=== PATIENT | female | born 1930 | race Caucasian/White ===

== ENCOUNTER → 2016-10-06 | Outpatient (CLI) | payer MEDICARE, BC | LOC: LGSMG 08:55 | DX: J47.9 Bronchiectasis, uncomplicated (principal); J20.9 Acute bronchitis, unspecified; J44.9 Chronic obstructive pulmonary disease, unspecified ==

== ENCOUNTER 2017-01-14 16:13 | Emergency (ER) | payer OTHER, MEDICARE, BC ==
--- NOTE | ~2017-01-14 | ER ---
PATIENT'S NAME: FAVIOLA ROBERSON [facility] AGE: 86 Y [address] ROOM: [place] [address] LOCATION: ED ADMIT DATE: 01/14/2017 ER/Outpatient Report DISCHARGE DATE: 01/14/2017 FAMILY PHYSICIAN: Kaley Michaels MD ATTENDING PHYSICIAN: Anatoliy Galvan TIME OF ARRIVAL: 1615 hours. TIME OF EVALUATION: 1616 hours. CHIEF COMPLAINT: Swallowed broken tooth. HISTORY OF PRESENT ILLNESS: The patient is an 86-year-old female who presents to the emergency department today with a chief complaint of broken tooth. She was at Dr. Okeefe's office here. She was getting a tooth pulled when part of it broke off and she ended up either swallowing it or aspirating, was unsure. Thus, she was sent over here for further evaluation and treatment. The patient does have a chronic cough. She did have a little coughing after. So, there was concern for possible aspiration. Denies any fevers or chills. No nausea or vomiting. No diarrhea or constipation. PAST MEDICAL HISTORY: O2-dependent, 3 L nasal cannula, emphysema; anxiety; bronchiectasis; hypertension; essential tremor; and spinal stenosis. PAST SURGICAL HISTORY: Sinus and tonsillectomy. SOCIAL HISTORY: The patient denies any tobacco, alcohol, or illicit drug use. ALLERGIES: NO KNOWN DRUG ALLERGIES. MEDICATIONS: Please see list. REVIEW OF SYSTEMS: All systems are reviewed by myself and are negative with the exception of those discussed in the HPI and Past Medical History. PATIENT'S NAME: FAVIOLA ROBERSON [facility] AGE: 86 Y [address] ROOM: [place] [address] LOCATION: ED ADMIT DATE: 01/14/2017 ER/Outpatient Report DISCHARGE DATE: 01/14/2017 FAMILY PHYSICIAN: Kaley Michaels MD ATTENDING PHYSICIAN: Anatoliy Galvan PHYSICAL EXAMINATION: VITAL SIGNS: Weight 43.2 kg. Blood pressure 145/72, pulse 93, respiratory rate 18, temperature 97.6, and oxygen saturation 93% on 3 L nasal cannula. GENERAL: The patient is an 86-year-old female who appears stated age, in no acute distress at this time. HEENT: Head is normocephalic and atraumatic. Pupils are equal, round, and reactive to light and accommodation. Extraocular motions are intact. Nares are patent bilaterally. TMs are clear. Oropharynx is clear. NECK: Supple. There is no nuchal rigidity. CARDIOVASCULAR: Regular rate and rhythm. LUNGS: Diminished diffusely. ABDOMEN: Soft, nontender, and nondistended. No rebound, rigidity, or guarding. MUSCULOSKELETAL: The patient moves all 4 extremities. SKIN: Warm and dry. There are no rashes or lesions noted. LABORATORY AND X-RAY DATA: Two-view chest x-ray and abdominal series was obtained, does show a tooth fragment noted in the small bowel. This is interpreted by myself. IMPRESSION: 1. Swallowed foreign body. 2. Initial visit. EMERGENCY DEPARTMENT COURSE: The patient was brought back to the examination room. Seen and evaluated by myself. X-rays were obtained as described above. The patient does have evidence of a swallowed foreign body. I have discussed this with the patient. I have discussed the case with Dr. Okeefe. We will proceed with expected management. I have discussed return to care instructions including worsening symptoms or any other concerns, to return to the emergency department as soon as possible. I have asked the patient to follow with primary care doctor as needed. The patient is agreeable and daughter is agreeable without further questions at this time. DISPOSITION: The patient is discharged to home in good condition. DO IVA ALEGRE/yasmin PATIENT'S NAME: FAVIOLA ROBERSON [facility] AGE: 86 Y [address] ROOM: [place] [address] LOCATION: ED ADMIT DATE: 01/14/2017 ER/Outpatient Report DISCHARGE DATE: 01/14/2017 FAMILY PHYSICIAN: Kaley Michaels MD ATTENDING PHYSICIAN: Anatoliy Galvan /[id number] d: 01/14/[id number] t: 08/13/17 0718, OUTPATIENT REPORT
== END 2017-01-14 16:40 | disposition disaster alternative care site (69) ==
LOC: GMED 16:13
DX: T18.3XXA Foreign body in small intestine, initial encounter (principal); I10 Essential (primary) hypertension; F41.9 Anxiety disorder, unspecified; R25.1 Tremor, unspecified; J43.9 Emphysema, unspecified; Z90.89 Acquired absence of other organs; Z79.899 Other long term (current) drug therapy